=== PATIENT | male | born 1960 | race Caucasian/White ===

== ENCOUNTER → 2020-09-24 16:38 | Outpatient (CLI) | payer OTHER, SELFPAY ==
--- NOTE | 2020-09-24 16:47 | DI.MRI.S_ITS ---
PROCEDURE: MR KNEE LT WO CON INDICATIONS: PAIN IN LEFT KNEE TECHNIQUE: Noncontrast sagittal PD fast spin echo and T2 fast spin echo with fat saturation, sagittal 3-D FLASH with fat saturation; coronal T1 spin echo and PD fast spin echo with fat saturation, and axial PD fast spin echo with fat saturation through the knee. COMPARISON: None. FINDINGS: Image quality: Excellent. Menisci: Medial extrusion of the medial meniscus is present which demonstrates linear oblique and horizontal high signal intensity traversing its body and posterior horn, demonstrating superior and inferior articular surface extension, indicating complex tearing. Lateral meniscus is intact. Cruciate ligaments: The anterior and posterior cruciate ligaments appear intact. Medial structures: The medial collateral ligament appears intact. Visualized portions of the pes anserinus tendons appear normal. No abnormal bursal fluid. Lateral structures: The lateral collateral ligament, long and short heads of the biceps femoris tendon appear intact. The popliteus tendon appears normal. Iliotibial band appears normal. Anterior structures: The quadriceps and patellar tendons appear intact. Patellar alignment is normal. No femoral trochlear dysplasia or ventral trochlear prominence. No edema in the infrapatellar fat pad. Bones and cartilage: No bone marrow contusions or fractures. There is mild tricompartmental periarticular osteophyte formation. Mild articular cartilage loss diffusely overlies the weight-bearing aspects of the medial femoral condyle and medial tibial plateau. Mild articular cartilage loss overlies the medial patellar facet. Joint space: There is a small knee joint effusion and a trace Martin's cyst. Small ganglion cyst along the popliteus. Normal appearing synovial plicae are incidentally noted. IMPRESSION: 1. Tricompartmental osteoarthritis with associated articular cartilage loss. 2. Complex tearing of the medial meniscus. 3. Small knee joint effusion, trace Martin's cyst, and small ganglion cyst along the popliteus. Dictated by: Josh Gates M.D. on 09/25/2020 at 8:23 Approved by: Josh Gates M.D. on 09/25/2020 at 8:25
== END ==
PROVIDERS: Referring Provider Orthopaedic Surgery; Visit Provider Orthopaedic Surgery
DX: M25.562 Pain in left knee (principal); S83.232A Complex tear of medial meniscus, current injury, left knee, initial encounter; M17.12 Unilateral primary osteoarthritis, left knee; M25.462 Effusion, left knee; M67.462 Ganglion, left knee
CPT/HCPCS: 73721

== ENCOUNTER → 2022-05-30 17:02 | Outpatient (CLI) | payer OTHER, SELFPAY ==
--- NOTE | 2022-05-30 17:06 | DI.RAD.S_ITS ---
PROCEDURE: XR FINGER RT MIN 2V INDICATIONS: Middle finger pain TECHNIQUE: AP hand, 2 views of the 3rd finger(s) acquired. COMPARISON: None. FINDINGS: Bones: No fractures or dislocations. No suspicious bony lesions. Soft tissues: No suspicious soft tissue calcifications. IMPRESSION: Unremarkable hand and 3rd finger radiographs Approved by: Major Forte M.D. on 05/30/2022 at 17:56
== END ==
PROVIDERS: Referring Provider Nurse Practitioner Family; Visit Provider Nurse Practitioner Family
DX: M79.644 Pain in right finger(s) (principal); W19.XXXA Unspecified fall, initial encounter
CPT/HCPCS: 73140

== ENCOUNTER → 2022-10-21 13:34 | Outpatient (CLI) | payer OTHER, SELFPAY ==
[2022-10-21 14:42] LABS: COVID19 -Nasal RAPID Negative (Negative)
== END ==
PROVIDERS: Visit Provider Surgery
DX: Z20.822 Contact with and (suspected) exposure to COVID-19 (principal); Z01.812 Encounter for preprocedural laboratory examination
CPT/HCPCS: 87635; C9803

== ENCOUNTER 2022-10-22 07:33 | Day surgery (SDC) | payer OTHER, SELFPAY ==
--- NOTE | 2022-10-22 | PATH_ITS ---
[facility] Accession Number: [id number] No. of containers..01 Tissue . 01 Material submitted: . colon - PROXIMAL TRANSVERSE POLYP . 01 Diagnosis: Proximal Transverse Colon Polyp: Tubular adenoma. MRV 10/23/2022 1424 Local . 01 Electronically signed: . Alvarado Wilkes MD, PhD, Pathologist NPI- [id number] . 01 Gross description: . PROXIMAL TRANSVERSE POLYP: Received in formalin is 1 fragment(s) of zhu, soft tissue measuring 0.6 x 0.3 x 0.2 cm submitted entirely in 1 cassette(s) /GRETA 10/23/2022 0056 Local . 01 Pathologist provided ICD-10: D12.3 . 01 CPT . 918785 Specimen Comment: A courtesy copy of this report has been sent to [phone] Performed at: 01 [facility] [address] [place] [address], [place], [place] [id number] MD Brennen Krueger MD Phone: [phone]
[2022-10-22 08:00] VITALS: BP 131/76; PULSE 95; RESP 16; TEMP 36.4; O2SAT 98; BMI 23.6
[2022-10-22] MEDS: LACTATED RINGERS 1,000 ML 42 ML IV (08:14)
--- NOTE | 2022-10-22 08:28 | P.HP_ITS ---
History of Present Illness History of Present Illness Date Patient Seen: 10/22/22 Time Patient Seen: 08:28 Chief complaint: SCREENING COLONOSCOPY Narrative: Major is a 61 year old man who has never had a colonoscopy. He has no known family history of colon cancer. He is from [facility] and prefers to have no sedation. Patient History Family & Social History Social History: household members spouse Tobacco & Substance use: Smoking Status Never smoker alcohol intake current alcohol intake frequency a few times a week Substance Use Type does not use Meds Home Medications and Allergies Home Medications Medication Instructions Recorded Confirmed Type No Known Home Medications 05/30/22 05/30/22 History Allergies Allergy/AdvReac Type Severity Reaction Status Date / Time No Known Drug Allergies Allergy Verified 10/22/22 07:53 Exam Vital Signs (past 8 hours): - 10/22/22 08:00 Temperature 97.5 F L Pulse Rate 95 H Respiratory Rate 16 Blood Pressure 131/76 Pulse Oximetry 98 Oxygen Delivery Method Room Air Oxygen Flow Rate 0 Oxygen Delivery Method Room Air Oxygen Flow Rate 0 Const General: healthy appearing Assessment & Plan Assessment and plan (1) Colon cancer screening: Status: Acute Plan 61 year old man here for colonoscopy for colon cancer screening. Reviewed the risks and benefits and he would like to proceed without sedation. Time Spent With Patient Critical Care time: I spent a total of [] minutes of critical care time on this patient's care today; this time is exclusive of procedural time.
--- NOTE | 2022-10-22 08:56 | PM.OP.COLON ---
Operative Date/Time/Diagnoses Date of procedure: 10/22/22 Time of procedure: 08:56 Pre-op diagnosis: Colon cancer screening Post-op diagnosis: same Procedure & Clinicians Study performed: Colonoscopy Same procedure as scheduled: Yes Surgeon: Brian Tinoco Procedure Notes Procedure in detail: Surgeon: Brian Tinoco MD Anesthesia: None Procedure: The patient was brought to the endoscopy suite, placed in left lateral decubitus position. The patient was connected to monitoring devices. A time-out was performed. Sedation was administered. Once the patient was adequately sedated, a digital rectal exam was performed and was normal. The scope was then inserted and advanced to the cecum where the appendiceal orifice was identified and photographed. The scope was then slowly withdrawn over greater than 6 minutes. The mucosa was thoroughly inspected. There was a small 4 mm polyp in the proximal transverse colon near the hepatic flexure removed with a cold snare. The scope was retroflexed in the rectum. No other abnormalities were noted. The scope was straightened and removed. The patient was awakened and brought to recovery. Scope withdrawal time: 8 minutes Sedation time: 22 minutes EBL: 5 mL Findings: 4 mm polyp in the proximal transverse colon Post-procedure Recommendations: Will call with biopsy results Disposition: PACU
== END 2022-10-22 09:17 | disposition home or self-care (01) ==
PROVIDERS: PCP Student in an Organized Health Care Education/Training Program; Referring Provider Surgery; Visit Provider Surgery
PROC: 0DJD8ZZ Inspection of Lower Intestinal Tract, Via Natural or Artificial Opening Endoscopic (ICD-10-PCS; CPT 45378; principal; 2022-10-22 08:30)
DX: Z12.11 Encounter for screening for malignant neoplasm of colon (principal); D12.3 Benign neoplasm of transverse colon
CPT/HCPCS: 45385